=== PATIENT | male | born 1990 | race Caucasian/White ===

== ENCOUNTER 2020-09-27 02:27 | Inpatient (IN) | payer SELFPAY ==
[2020-09-27 02:32] VITALS: BP 133/98; PULSE 81; BMI 25.8
[2020-09-27 03:34] LABS: BASO % 0.3 % (0-2.0); EOS % 1.2 % (0-4.5); HEMATOCRIT 44.1 % (35.4-49); HEMOGLOBIN 15.1 GM/dL (11.7-16.9); LYMPH % 49.4 % (8-40); MCH 30.8 pg (25.7-33.7); MCHC 34.3 g/dl (32.0-35.9); MEAN CELL VOLUME 89.8 fl (80-96); MEAN PLT VOLUME 9.9 fl (7.5-11.1); MONO % 7.4 % (3.8-10.2); NEUT % 41.7 % (42.8-82.8); PLATELET COUNT 154 K/MM3 (134-434); RBC 4.91 M/mm3 (4.00-5.60); RDW 13.4 % (11.9-15.9); WHITE BLOOD COUNT 6.7 K/mm3 (4.0-10.0)
[2020-09-27 03:41] LABS: INR 0.92 (0.83-1.09); PROTHROMBIN TIME (PATIENT) 11.3 SEC (9.7-13.0)
[2020-09-27 03:45] LABS: URINE BARBITURATES NEGATIVE ng/ml (CUTOFF=200); URINE BENZODIAZEPINES NEGATIVE ng/ml (CUTOFF=200)
[2020-09-27 03:46] LABS: METHADONE, UR NEGATIVE ng/ml (CUTOFF=300); OPIATES, URI NEGATIVE ng/ml (CUTOFF=300); PHENCYCLIDINE,URINE NEGATIVE ng/ml (CUTOFF=25)
[2020-09-27 03:51] LABS: CHLORIDE 108 mmol/L (98-107); SODIUM 142 mmol/L (136-145)
[2020-09-27 03:54] LABS: CALCIUM 8.5 mg/dL (8.5-10.1)
[2020-09-27 03:54] LABS: COCAINE, UR NEGATIVE ng/ml (CUTOFF=300); URINE AMPHETAMINES NEGATIVE ng/ml (CUTOFF=500)
[2020-09-27 03:55] LABS: ALBUMIN 4.1 g/dl (3.4-5.0); ANION GAP 7 MMOL/L (8-16); BLOOD UREA NITROGEN 8.7 mg/dL (7-18); CO2 28 mmol/L (21-32); GLUCOSE,RANDOM 116 mg/dL (74-106); MAGNESIUM 2.5 mg/dL (1.8-2.4)
[2020-09-27 03:58] LABS: SGOT/AST 106 U/L (15-37); SGPT/ALT 228 U/L (13-61)
[2020-09-27 03:59] LABS: BILIRUBIN,TOTAL 0.7 mg/dL (0.2-1); TOT PROT 7.7 g/dl (6.4-8.2)
[2020-09-27 04:01] LABS: ALK PHOS 64 U/L (45-117)
[2020-09-27 04:03] LABS: N-TERMINAL BNP 5.9 pg/ml (5-125)
== END 2020-09-27 05:35 | disposition left against medical advice (07) | DRG 204 ==
LOC: JER 02:27 → JERBED 04:09
PROVIDERS: ADMIT Internal Medicine; ATTEND Internal Medicine
DX: R55 Syncope and collapse (principal); E83.41 Hypermagnesemia; F17.210 Nicotine dependence, cigarettes, uncomplicated; F10.129 Alcohol abuse with intoxication, unspecified; R74.01 Elevation of levels of liver transaminase levels
CPT/HCPCS: 36415; 71045-TC-FY; 80053; 80307; 82550; 83735; 83880; 84484; 85025; 85610; 85730; 93005; 93010; 99285-25